=== PATIENT | female | born 1980 | race Caucasian/White ===

== ENCOUNTER 2017-09-11 10:27 | Emergency (ER) | payer MEDICAID ==
[2017-09-11 11:02] LABS: APPEARANCE HAZY (CLEAR); BACTERIA MODERATE /hpf (NONE SEEN); BILIRUBIN NEGATIVE (NEGATIVE); COLOR YELLOW (YELLOW); GLUCOSE NEGATIVE (NEGATIVE); KETONE NEGATIVE (NEGATIVE); MUCUS <1+ /lpf (NONE SEEN); NITRITE NEGATIVE (NEGATIVE); PROTEIN NEGATIVE (NEGATIVE); RED CELLS - URINE 25-50 /hpf (0-5); SPECIFIC GRAVITY 1.025 (1.005-1.020); UROBILINOGEN NORMAL (NORMAL)
[2017-09-11 11:21] LABS: BASOPHILS 0.2 % (0-2); HEMATOCRIT 42.7 % (36.0-48.0); HEMOGLOBIN 14.4 g/dL (12-16); IMMATURE GRANULOCYTES 0.3 % (0-5); LYMPHOCYTES 16.5 % (15-50); MCHC 33.7 g/dL (31.0-37.0); MCV 91.8 fL (80.0-100.0); MEAN PLATELET VOLUME 9.5 fL (7.4-10.4); RBC 4.65 10x6/uL (4.00-5.40); RDW 13.3 % (11.5-14.5); WBC 11.2 10x3/uL (4.8-10.8)
[2017-09-11 11:24] LABS: PLATELET COUNT 325 10x3/uL (130-400)
[2017-09-11 11:26] LABS: HCG SERUM NEGATIVE (NEGATIVE)
[2017-09-11 11:31] LABS: ALBUMIN 3.3 g/dL (3.4-5.0); ALKALINE PHOSPHATASE 69 U/L (46-116); ALT (SGPT) 44 U/L (10-68); BILIRUBIN - TOTAL 0.49 mg/dL (0.2-1.3); CALC OSMOLALITY 278 mosm/kg (275-300); CHLORIDE - SERUM 105 mmol/L (98-107); CREATININE - SERUM 0.7 mg/dL (0.6-1.3); GLUCOSE 103 mg/dL (74-106); POTASSIUM - SERUM 3.6 mmol/L (3.5-5.1); SODIUM 140 mmol/L (136-145); UREA NITROGEN 13 mg/dL (7-18); eGFR NON AFRICAN AMERICAN > 90 mL/min (90-120)
== END 2017-09-11 12:52 | disposition home or self-care (01) ==
LOC: D.ER 10:27
PROVIDERS: Emergency Medicine; Physician Assistant
DX: N23 Unspecified renal colic (principal); N20.0 Calculus of kidney; Z85.43 Personal history of malignant neoplasm of ovary; Z85.41 Personal history of malignant neoplasm of cervix uteri

== ENCOUNTER 2018-02-17 07:44 | Emergency (ER) | payer MEDICAID ==
[~2018-02-17] VITALS: Ht 175.3 cm; Wt 127.3 kg
[2018-02-17 07:47] VITALS: BP 130/75; Ht 175.3 cm; Wt 127.3 kg
[2018-02-17] MEDS ORDERED: IBUPROFEN800 MG PO (08:28)
[2018-02-17] MEDS ORDERED: CYCLOBENZAPRINE10 MG PO (08:28)
[2018-02-17] MEDS ORDERED: ACETAMINOPHEN500 M1 PO (08:28)
== END 2018-02-17 09:48 | disposition home or self-care (01) ==
LOC: D.ER 07:44
DX: M25.561 Pain in right knee (principal); M23.91 Unspecified internal derangement of right knee; F17.200 Nicotine dependence, unspecified, uncomplicated

== ENCOUNTER 2018-05-22 20:27 | Emergency (ER) | payer MEDICAID ==
[~2018-05-22] VITALS: Ht 175.3 cm; Wt 129.5 kg
[~2018-05-22 20:27] MED LIST: ACETAMINOPHEN500 M1 PO; CYCLOBENZAPRINE10 MG PO; IBUPROFEN800 MG PO
[2018-05-22 20:33] VITALS: Ht 175.3 cm; Wt 129.5 kg
[2018-05-22 20:53] LABS: BASOPHILS 0.3 % (0-2); EOSINOPHILS 1.2 % (0-7); HEMATOCRIT 45.2 % (36.0-48.0); HEMOGLOBIN 14.9 g/dL (12-16); IMMATURE GRANULOCYTES 0.3 % (0-5); MCH 30.8 pg (26.0-34.0); MCV 93.6 fL (80.0-100.0); MEAN PLATELET VOLUME 9.8 fL (7.4-10.4); MONOCYTES 4.9 % (2-11); NEUTROPHILS 78.3 % (40-80); PLATELET COUNT 299 10x3/uL (130-400); RBC 4.83 10x6/uL (4.00-5.40); RDW 13.4 % (11.5-14.5); WBC 13.1 10x3/uL (4.8-10.8)
[2018-05-22 21:00] LABS: APTT 29.3 SECONDS (22.8-39.4); INR 0.97 (0.85-1.17); PROTIME 12.4 SECONDS (11.6-15.0)
[2018-05-22 21:03] LABS: HCG SERUM NEGATIVE (NEGATIVE)
[2018-05-22 21:04] LABS: ALBUMIN 3.4 g/dL (3.4-5.0); ALKALINE PHOSPHATASE 70 U/L (46-116); ALT (SGPT) 25 U/L (10-68); BILIRUBIN - TOTAL 0.26 mg/dL (0.2-1.3); CALC OSMOLALITY 281 mosm/kg (275-300); CALCIUM 8.6 mg/dL (8.5-10.1); CARBON DIOXIDE 26.6 mmol/L (21.0-32.0); CHLORIDE - SERUM 106 mmol/L (98-107); CREATININE - SERUM 0.8 mg/dL (0.6-1.3); GLUCOSE 104 mg/dL (74-106); PROTEIN - SERUM 7.2 g/dL (6.4-8.2); SODIUM 141 mmol/L (136-145); UREA NITROGEN 14 mg/dL (7-18); eGFR NON AFRICAN AMERICAN 85 mL/min (90-120)
[2018-05-22 21:20] LABS: CKMB 0.2 U/L (0.0-3.6); CREATINE KINASE 52 UL (21-215); MAGNESIUM - SERUM 1.9 mg/dL (1.8-2.4)
[2018-05-22 21:21] LABS: TROPONIN-I < 0.017 ng/mL (0.000-0.060)
[2018-05-22] MEDS ORDERED: ZPAK PO (22:13)
[2018-05-22 22:18] LABS: APPEARANCE CLEAR (CLEAR); BILIRUBIN NEGATIVE (NEGATIVE); COLOR YELLOW (YELLOW); GLUCOSE NEGATIVE (NEGATIVE); KETONE NEGATIVE (NEGATIVE); NITRITE NEGATIVE (NEGATIVE); PROTEIN NEGATIVE (NEGATIVE); SPECIFIC GRAVITY 1.015 (1.005-1.020); UROBILINOGEN NORMAL (NORMAL)
[2018-05-22 22:38] VITALS: BP 122/85
== END 2018-05-22 22:32 | disposition home or self-care (01) ==
LOC: D.ER 20:27
PROVIDERS: Emergency Medicine
DX: J06.9 Acute upper respiratory infection, unspecified (principal); F17.200 Nicotine dependence, unspecified, uncomplicated

== ENCOUNTER 2019-05-03 00:32 | Emergency (ER) | payer SELFPAY ==
[~2019-05-03] VITALS: Ht 175.3 cm; Wt 136.4 kg
[~2019-05-03 00:32] MED LIST changes: +ZPAK PO
[2019-05-03 00:36] VITALS: Ht 175.3 cm; Wt 136.4 kg
[2019-05-03 01:05] LABS: BASOPHILS 0.3 % (0-2); EOSINOPHILS 1.7 % (0-7); HEMATOCRIT 45.2 % (36.0-48.0); IMMATURE GRANULOCYTES 0.3 % (0-5); LYMPHOCYTES 20.9 % (15-50); MCH 30.9 pg (26.0-34.0); MCHC 33.2 g/dL (31.0-37.0); MCV 93.2 fL (80.0-100.0); MEAN PLATELET VOLUME 9.1 fL (7.4-10.4); MONOCYTES 6.7 % (2-11); NEUTROPHILS 70.1 % (40-80); PLATELET COUNT 318 10x3/uL (130-400); RBC 4.85 10x6/uL (4.00-5.40); RDW 12.9 % (11.5-14.5); WBC 13.8 10x3/uL (4.8-10.8)
[2019-05-03 01:16] LABS: CALC OSMOLALITY 283 mosm/kg (275-300); CALCIUM 8.8 mg/dL (8.5-10.1); CARBON DIOXIDE 26.6 mmol/L (21.0-32.0); CHLORIDE - SERUM 105 mmol/L (98-107); CREATININE - SERUM 0.8 mg/dL (0.6-1.3); GLUCOSE 121 mg/dL (74-106); POTASSIUM - SERUM 3.9 mmol/L (3.5-5.1); SODIUM 141 mmol/L (136-145); UREA NITROGEN 18 mg/dL (7-18); eGFR NON AFRICAN AMERICAN 85 mL/min (90-120)
[2019-05-03 01:17] LABS: HCG URINE NEGATIVE (NEGATIVE)
[2019-05-03 01:21] LABS: APPEARANCE HAZY (CLEAR); BILIRUBIN NEGATIVE (NEGATIVE); COLOR YELLOW (YELLOW); GLUCOSE NEGATIVE (NEGATIVE); KETONE NEGATIVE (NEGATIVE); NITRITE NEGATIVE (NEGATIVE); PROTEIN 1+ mg/dL (NEGATIVE); UROBILINOGEN NORMAL (NORMAL)
[2019-05-03 01:23] LABS: ALBUMIN 3.7 g/dL (3.4-5.0); ALKALINE PHOSPHATASE 67 U/L (46-116); ALT (SGPT) 19 U/L (10-68); BACTERIA FEW /hpf (NEGATIVE); BILIRUBIN - TOTAL 0.28 mg/dL (0.2-1.3); EPITHELIAL CELLS 0-5 /hpf (0-5); LIPASE 61 U/L (73-393); PROTEIN - SERUM 7.4 g/dL (6.4-8.2); WHITE CELLS - URINE 0-5 /hpf (NEGATIVE); YEAST >1+ /hpf (NONE SEEN)
[2019-05-03] MEDS ORDERED: ZOFRAN ODT4 MG/UDTAB PO (03:17)
[2019-05-03] MEDS ORDERED: HYDROCODON-ACE1 EAC2 PO (03:17)
[2019-05-03] MEDS ORDERED: FLOMAX0.4 MG PO (03:17)
[2019-05-03 03:31] VITALS: BP 127/80
== END 2019-05-03 03:31 | disposition home or self-care (01) ==
LOC: D.ER 00:32
PROVIDERS: Family Medicine
DX: N20.1 Calculus of ureter (principal); R01.1 Cardiac murmur, unspecified; R10.9 Unspecified abdominal pain

== ENCOUNTER 2019-10-15 02:04 | Emergency (ER) | payer SELFPAY ==
[~2019-10-15] VITALS: Ht 175.3 cm; Wt 127.0 kg
[~2019-10-15 02:04] MED LIST changes: +FLOMAX0.4 MG PO; +HYDROCODON-ACE1 EAC2 PO; +ZOFRAN ODT4 MG/UDTAB PO
[2019-10-15 02:09] VITALS: BP 193/100; Ht 175.3 cm; Wt 127.0 kg
[2019-10-15] MEDS ORDERED: BLEPH-105 ML RIGHT EYE (02:22)
== END 2019-10-15 02:38 | disposition home or self-care (01) ==
LOC: D.ER 02:04
DX: H10.021 Other mucopurulent conjunctivitis, right eye (principal)

== ENCOUNTER 2020-07-28 10:51 | Emergency (ER) | payer SELFPAY ==
[~2020-07-28] VITALS: Ht 175.3 cm; Wt 113.6 kg
[~2020-07-28 10:51] MED LIST changes: +BLEPH-105 ML RIGHT EYE; +KEFLEX500 MG PO
[2020-07-28 11:02] VITALS: BP 146/116; Ht 175.3 cm; Wt 113.6 kg
[2020-07-28 11:47] LABS: INFLUENZA TYPE A NEGATIVE (NEGATIVE); INFLUENZA TYPE B NEGATIVE (NEGATIVE)
[2020-07-28 11:59] LABS: BASOPHILS 0.3 % (0-2); EOSINOPHILS 4.2 % (0-7); HEMATOCRIT 39.9 % (36.0-48.0); HEMOGLOBIN 12.9 g/dL (12-16); IMMATURE GRANULOCYTES 0.3 % (0-5); LYMPHOCYTE ABS# 1.72 10x3/uL (1.18-3.74); LYMPHOCYTES 21.7 % (15-50); MCH 30.3 pg (26.0-34.0); MCHC 32.3 g/dL (31.0-37.0); MCV 93.7 fL (80.0-100.0); MEAN PLATELET VOLUME 8.7 fL (7.4-10.4); MONOCYTES 9.2 % (2-11); NEUTROPHILS 64.3 % (40-80); RBC 4.26 10x6/uL (4.00-5.40); RDW 13.9 % (11.5-14.5); WBC 7.9 10x3/uL (4.8-10.8)
[2020-07-28 12:02] LABS: PLATELET COUNT 241 10x3/uL (130-400)
[2020-07-28 12:18] LABS: CALC OSMOLALITY 287 mosm/kg (275-300); CALCIUM 8.3 mg/dL (8.5-10.1); CARBON DIOXIDE 27.5 mmol/L (21.0-32.0); CHLORIDE - SERUM 108 mmol/L (98-107); CREATININE - SERUM 0.7 mg/dL (0.6-1.3); GLUCOSE 93 mg/dL (74-106); POTASSIUM - SERUM 3.6 mmol/L (3.5-5.1); SODIUM 144 mmol/L (136-145); UREA NITROGEN 16 mg/dL (7-18); eGFR NON AFRICAN AMERICAN > 90 mL/min (90-120)
[2020-07-28 12:25] LABS: ALBUMIN 2.9 g/dL (3.4-5.0); ALKALINE PHOSPHATASE 63 U/L (30-120); ALT (SGPT) 17 U/L (10-68); PROTEIN - SERUM 5.9 g/dL (6.4-8.2)
[2020-07-28 12:27] LABS: BILIRUBIN - TOTAL 0.07 mg/dL (0.2-1.3)
[2020-07-28] MEDS ORDERED: FLUTICASONE PRO16 GM NASAL (12:30)
[2020-07-28] MEDS ORDERED: MEDROL DOSE PACK4 MG PO (12:30)
[2020-07-28] MEDS ORDERED: CLARITIN 10 MG10 MG PO (12:30)
== END 2020-07-28 12:52 | disposition home or self-care (01) ==
LOC: D.ER 10:51
PROVIDERS: Family Medicine
DX: J06.9 Acute upper respiratory infection, unspecified (principal); J32.9 Chronic sinusitis, unspecified; Z72.0 Tobacco use; R06.02 Shortness of breath